=== PATIENT | female | born 1960 | race African-American/Black ===

== ENCOUNTER 2020-10-30 00:19 | Emergency (ER) | payer MEDICAID ==
[~2020-10-30] VITALS: Ht 162.6 cm; Wt 59.0 kg
[~2020-10-30 00:19] MED LIST: AZIT500T3 PO; BENZ2TAB7 PO; EMTR1TAB11 PO; ESCI20TA37 PO; IBUP-2029 PO; KALET2 PO; LITHTAB PO; LOPI1TAB PO; MULT-1116 PO; MULT-1146 PO; PHEN100C12 PO; PNV1CAPS45 PO; PRENATAL ONE T1 EACH PO; PROM6.254 PO; QUET100T PO; QUET300T2 PO; TRIA15CR61 TP; [UNRECOGNIZED DRUG - CODE] TP
[2020-10-30] MEDS ORDERED: METHOCARBAMOL 500MG TABLET PO ONE (01:15)
[2020-10-30] MEDS ORDERED: LIDOCAINE 5% PATCH TOP SCH (01:15)
[2020-10-30] MEDS ORDERED: IBUPROFEN 400MG TABLET PO ONE (01:15)
[2020-10-30 01:27] VITALS: BP 146/76
== END 2020-10-30 02:49 | disposition left against medical advice (07) ==
LOC: ER 00:19
DX: M79.605 Pain in left leg (principal); M54.9 Dorsalgia, unspecified; F17.200 Nicotine dependence, unspecified, uncomplicated; I10 Essential (primary) hypertension; Z88.0 Allergy status to penicillin; Z79.899 Other long term (current) drug therapy
CPT/HCPCS: 99283